=== PATIENT | male | born 1990 | race Caucasian/White ===

== ENCOUNTER 2019-11-29 04:09 | Emergency (ER) | payer OTHER ==
[~2019-11-29] VITALS: Ht 170.2 cm; Wt 81.6 kg
--- NOTE | 2019-11-29 04:09 | NUR ---
PT GI ALS. TAKEN TO BED 6
[2019-11-29 04:16] VITALS: BP 129/91
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
--- NOTE | 2019-11-29 04:24 | NUR ---
Dr. Wolfe examining patient.
[2019-11-29] MEDS ORDERED: ONDANSETRON 4 MG ODT PO ONE (04:30)
--- NOTE | 2019-11-29 04:53 | NUR ---
PT TAKEN TO CT
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
--- NOTE | 2019-11-29 05:06 | NUR ---
PT RETURN FROM CT
[2019-11-29] MEDS ORDERED: BACITRACIN OINT 500 UNITS/GM PKT TP ONE (05:40)
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
[2019-11-29 05:55] VITALS: BP 129/91
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
== END 2019-11-29 05:55 | disposition home or self-care (01) ==
LOC: MED 04:09
DX: T14.90XA Injury, unspecified, initial encounter (principal); F10.120 Alcohol abuse with intoxication, uncomplicated; Z88.5 Allergy status to narcotic agent; Y90.9 Presence of alcohol in blood, level not specified; Y04.8XXA Assault by other bodily force, initial encounter; Y93.89 Activity, other specified; Y92.89 Other specified places as the place of occurrence of the external cause; Y99.8 Other external cause status; Z88.6 Allergy status to analgesic agent
CPT/HCPCS: 70450; 99284; Q0162